=== PATIENT | female | born 1995 | race Caucasian/White ===

== ENCOUNTER 2017-03-08 12:10 | Emergency (ER) | payer SELFPAY ==
[2017-03-08 13:30] LABS: Hematocrit 41 % (35-47); Hemoglobin 13.6 g/dl (12.0-16.0); Mean Corpuscular HGB Conc 33 g/dl (31-36); Mean Corpuscular Hemoglobin 30 pg (27-31); Mean Corpuscular Volume 89 fL (80-97); Mean Platelet Volume 9 um3 (7.4-10.4); Red Blood Count 4.61 10^6/ul (4.0-5.4); Red Cell Distribution Width 13 % (10.5-15); White Blood Count 8.8 10^3/ul (3.5-10.8)
[2017-03-08 13:55] LABS: ALT 7 U/L (7-52); AST 17 U/L (13-39); Albumin 4.1 g/dL (3.2-5.2); Alkaline Phosphatase 53 U/L (34-104); Anion Gap 4 mmol/L (2-11); BUN/Creatinine Ratio 13.3 (8-20); Blood Urea Nitrogen 10 mg/dL (6-24); C Reactive Protein < 1.00 mg/L (< 5.00); CO2 Carbon Dioxide 25 mmol/L (22-32); Chloride 108 mmol/L (101-111); EGFR African American 126.7 (>60); EGFR Non-African American 98.5 (>60); Globulin 2.5 g/dL (2-4); Glucose 89 mg/dL (70-100); Lipase 22 U/L (11.0-82.0); Potassium 4.4 mmol/L (3.5-5.0); Sodium 137 mmol/L (133-145); Total Protein 6.6 g/dL (6.4-8.9)
--- NOTE | 2017-03-08 14:45 | RAD ---
HISTORY: Abdominal pain COMPARISONS: None VIEWS: Frontal supine and upright views of the abdomen. FINDINGS: BOWEL: There is a nonspecific bowel gas pattern, with nondilated small bowel gas noted. There is a large amount of stool within the colon. CALCULI: There are no abnormal calculi. BONES AND SOFT TISSUES: There are no osseous abnormalities. OTHER FINDINGS: The lung bases are clear. There is no subphrenic gas. IMPRESSION: NONSPECIFIC BOWEL GAS PATTERN. LARGE AMOUNT OF STOOL WITHIN THE COLON.
[2017-03-08 15:10] VITALS: BP 95/38
--- NOTE | 2017-03-08 18:54 | ED ---
Mikayla Garcia Edward, scribed for Arnoldo Rubio MD on 03/08/17 at 1233 . Abdominal Pain/Female - HPI Summary HPI Summary: 21 y/o female presents to the ED c/o sudden onset severe ABD pain in the lower ABD starting around 1 hr ago. The pain lasted around 30 minutes. Associated sx: 2x diarrhea (soft stool), N/V, diaphoresis. The pain started as a constant pain that came back in waves after the pt had diarrhea. The pain has subsided substantially and now it feels like the pain is like 'period cramps'. LNMP early January (irregular period). No PMHx. No Sx. Pt had EtOH last night. No relevant FHx. - History of Current Complaint Chief Complaint: EDAbdPain Stated Complaint: ABD PAIN Time Seen by Provider: 03/08/17 12:21 Hx Obtained From: Patient Onset/Duration: Sudden Onset, Lasting Minutes, Resolved Timing: Intermittent Episode Lasting - 30 min Severity Initially: Severe Severity Currently: Mild Pain Intensity: 2 Pain Scale Used: 0-10 Numeric Location: Other - Lower ABD Aggravating Factor(s): Nothing Alleviating Factor(s): Bowel Movement - but came back in waves after Associated Signs and Symptoms: Positive: Nausea, Vomiting, Diarrhea, Other: - Diaphoresis PMH/Surg Hx/FS Hx/Imm Hx Previously Healthy: Yes Endocrine/Hematology History: Denies: Hx Diabetes Cardiovascular History: Denies: Hx Myocardial Infarction History: Reports: Other Problems/Disorders - Irregular period - Surgical History Surgery Procedure, Year, and Place: N/A Infectious Disease History: No Infectious Disease History: Denies: Traveled Outside the [place] in Last 30 Days - Social History Occupation: Student Alcohol Use: Rare Hx Substance Use: No Substance Use Type: Reports: None Hx Tobacco Use: No Smoking Status (MU): Never Smoked Tobacco Review of Systems Positive: Skin Diaphoresis Eyes: Negative ENT: Negative Cardiovascular: Negative Respiratory: Negative Positive: Abdominal Pain, Vomiting, Diarrhea, Nausea Genitourinary: Negative Musculoskeletal: Negative Skin: Negative Neurological: Negative Psychological: Normal All Other Systems Reviewed And Are Negative: Yes Physical Exam - Summary Physical Exam Summary: VITAL SIGNS: Reviewed. GENERAL: Patient is a well-developed and nourished female who is lying comfortable in the stretcher. Patient is not in any acute respiratory distress. HEAD AND FACE: Normocephalic and atraumatic. EYES: PERRLA, EOMI x 2, No injected conjunctiva. EARS: Hearing grossly intact. Ear canals and tympanic membranes are WNL. MOUTH: Oropharynx within normal limits. NECK: Supple, trachea is midline, no adenopathy, no JVD. CHEST: Symmetric, no tenderness at palpation LUNGS: Clear to auscultation bilaterally. No wheezing or crackles. CVS: RRR, S1 and S2 present, no murmurs or gallops appreciated. ABDOMEN: Soft, non-tender. No signs of distention. Positive bowel sounds. No rebound no guarding, and no masses palpated. No abdominal bruit or pulsations. EXTREMITIES: FROM in all major joints, no edema, no cyanosis or clubbing. NEURO: Alert and oriented x 3. No acute neurological deficits. Speech is normal. SKIN: Dry and warm Triage Information Reviewed: Yes Vital Signs On Initial Exam: Initial Vitals Temp Pulse Resp BP Pulse Ox 97.8 F 73 16 96/66 99 03/08/17 12:17 03/08/17 12:17 03/08/17 12:17 03/08/17 12:17 03/08/17 12:17 Vital Signs Reviewed: Yes - Yennifer Coma Scale Coma Scale Total: 15 Diagnostics - Vital Signs Vital Signs Temp Pulse Resp BP Pulse Ox 03/08/17 12:17 97.8 F 73 16 96/66 99 - Laboratory Lab Results: Lab Results 03/08/17 03/08/17 Range/Units 13:15 13:15 WBC 8.8 (3.5-10.8) 10^3/ul RBC 4.61 (4.0-5.4) 10^6/ul Hgb 13.6 (12.0-16.0) g/dl Hct 41 (35-47) % MCV 89 (80-97) fL MCH 30 (27-31) pg MCHC 33 (31-36) g/dl RDW 13 (10.5-15) % Plt Count 207 (150-450) 10^3/ul MPV 9 (7.4-10.4) um3 Neut % (Auto) 76.3 (38-83) % Lymph % (Auto) 16.4 L (25-47) % Cass % (Auto) 5.3 (1-9) % Eos % (Auto) 1.2 (0-6) % Baso % (Auto) 0.8 (0-2) % Absolute Neuts (auto) 6.7 (1.5-7.7) 10^3/ul Absolute Lymphs (auto) 1.4 (1.0-4.8) 10^3/ul Absolute Monos (auto) 0.5 (0-0.8) 10^3/ul Absolute Eos (auto) 0.1 (0-0.6) 10^3/ul Absolute Basos (auto) 0.1 (0-0.2) 10^3/ul Absolute Nucleated RBC 0 10^3/ul Nucleated RBC % 0 Sodium 137 (133-145) mmol/L Potassium 4.4 (3.5-5.0) mmol/L Chloride 108 (101-111) mmol/L Carbon Dioxide 25 (22-32) mmol/L Anion Gap 4 (2-11) mmol/L BUN 10 (6-24) mg/dL Creatinine 0.75 (0.51-0.95) mg/dL Est GFR ( Amer) 126.7 (>60) Est GFR (Non-Af Amer) 98.5 (>60) BUN/Creatinine Ratio 13.3 (8-20) Glucose 89 (70-100) mg/dL Calcium 9.0 (8.6-10.3) mg/dL Total Bilirubin 0.40 (0.2-1.0) mg/dL AST 17 (13-39) U/L ALT 7 (7-52) U/L Alkaline Phosphatase 53 (34-104) U/L C-Reactive Protein < 1.00 (< 5.00) mg/L Total Protein 6.6 (6.4-8.9) g/dL Albumin 4.1 (3.2-5.2) g/dL Globulin 2.5 (2-4) g/dL Albumin/Globulin Ratio 1.6 (1-3) Lipase 22 (11.0-82.0) U/L Beta HCG, Quant < 0.60 mIU/mL Result Diagrams: 03/08/17 13:15 03/08/17 13:15 Lab Statement: Any lab studies that have been ordered have been reviewed, and results considered in the medical decision making process. - Radiology ABD XR Xray Interpretation: No Acute Changes - NEGATIVE FOR ACUTE PATHOLOGY Radiology Interpretation Completed By: Radiologist Abdominal Pain Fem Course/Dx - Course Course Of Treatment: 21 y/oi female presents to the ED c/o sudden onset severe ABD pain in the lower ABD starting around 1 hr ago. The pain lasted around 30 minutes. Associated sx: 2x diarrhea (soft stool), N/V, diaphoresis. The pain started as a constant pain that came back in waves after the pt had diarrhea. The pain has subsided substantially and now it feels like the pain is like ' period cramps'. LNMP early January (irregular period). No PMHx. No Sx. Pt had EtOH last night. No relevant FHx. Test results without significant abnormality. XR negative for acute pathology. Pt remained asymptomatic. Therefore the pt will be d/c home with f/u with pcp. - Diagnoses Differential Diagnosis: Positive: Bowel Obstruction, Constipation, Ovarian Cyst , Urinary Tract Infection Provider Diagnoses: Abdominal pain Discharge - Discharge Plan Condition: Stable Disposition: HOME Patient Education Materials: Abdominal Pain (ED) [facility]Primary [facility] - 5 Days (PLEASE F/U IN 3-5 DAYS) The documentation as recorded by the Mikayla hernandez Edward accurately reflects the service I personally performed and the decisions made by Ramiro olguin Walter, MD.
== END 2017-03-08 15:09 | disposition home or self-care (01) ==
LOC: ED 12:10
DX: R10.30 Lower abdominal pain, unspecified (principal); R11.2 Nausea with vomiting, unspecified; R19.7 Diarrhea, unspecified; R61 Generalized hyperhidrosis; N92.6 Irregular menstruation, unspecified; Z32.02 Encounter for pregnancy test, result negative
CPT/HCPCS: 36415; 74020; 80053; 83690; 84702; 85025; 86140; 99282